=== PATIENT | female | born 1965 | race Caucasian/White ===

== ENCOUNTER 2018-07-25 19:20 | Emergency (ER) | payer OTHER ==
[~2018-07-25] VITALS: Ht 167.6 cm; Wt 71.4 kg
[~2018-07-25 19:20] MED LIST: ALBUTEROL SULF8.5 GM IH; DELTASONE20 M1 PO; MICRONOR0.35 MG PO; MOTRIN800 MG PO; PAXIL10 MG PO; PREDNISONE10 M1 PO; XANAX0.25 MG PO; ZITHROMAX Z-PA250 MG PO
[2018-07-25] MEDS ORDERED: MOTRIN600 MG PO (22:48)
[2018-07-25] MEDS ORDERED: BACLOFEN10 MG PO (22:48)
[2018-07-25] MEDS ORDERED: LIDODERM 5% P1 PATCH TD (22:48)
[2018-07-25 23:37] VITALS: BP 108/83
== END 2018-07-25 23:39 | disposition home or self-care (01) ==
LOC: EME 19:20
DX: M25.512 Pain in left shoulder (principal); M25.612 Stiffness of left shoulder, not elsewhere classified; V40.5XXA Car driver injured in collision with pedestrian or animal in traffic accident, initial encounter; Z87.891 Personal history of nicotine dependence
CPT/HCPCS: 73030; 99281; 99284; J1885